=== PATIENT | male | born 1955 | race Caucasian/White ===

== ENCOUNTER 2023-11-04 10:36 | Emergency (ER) | payer MEDICARE, SELFPAY ==
[2023-11-04 10:38] VITALS: BP 155/103; PULSE 80; RESP 18; TEMP 36.4; O2SAT 93; BMI 28.8
--- NOTE | 2023-11-04 10:39 | CT_ITS ---
STUDY: CT CERVICAL SPINE WITHOUT CONTRAST REASON FOR EXAM: Male, 67 years old. Fall, neck RADIATION DOSAGE (If Supplied By Facility): CTDIvol = ( 27.28 ) mGy, DLP = ( 498.97 ) mGycm TECHNIQUE: High resolution transaxial imaging was performed without contrast material. Sagittal and coronal images were reconstructed. Individualized dose optimization techniques were used for this CT. COMPARISON: None FINDINGS: Normal craniovertebral junction. Normal anterior atlantoaxial articulation. Normal odontoid process. There is a fracture involving the occipital bone extending to the foramen magnum. A small amount of air is seen along the inferior aspect of the right foramen magnum. There is straightening of the normal cervical lordosis. Normal vertebral bodies and posterior osseous elements. C2-3: Facet joint osteoarthritis and hypertrophy more prominent on the right side. C3-4: Mild degree of disc space narrowing. Facet joint osteoarthritis and hypertrophy. No significant stenosis seen. C4-5: Moderate degree of disc space narrowing. Spondylosis. Uncovertebral arthrosis. No significant stenosis is seen. C5-6: Marked degree of disc space narrowing with spondylosis and uncovertebral arthrosis. Bilateral neural foraminal stenosis. C6-7: Marked degree of disc space narrowing with uncovertebral arthrosis. Bilateral neural foraminal stenosis. C7-T1: Normal endplates. Normal disc height and morphology. Normal central canal and intervertebral neuroforamina. Atherosclerotic plaque formation of the carotid bifurcation. CT/Spine Cervical without Contras IMPRESSION: Multilevel degenerative changes, as described above. Fracture through the base of the occipital bone as described in the seen on the CT scan of the head. Electronically Signed: Jonathan Beverly MD at 11:27 EDT ,
--- NOTE | 2023-11-04 10:39 | CT_ITS ---
STUDY: CT BRAIN WITHOUT CONTRAST REASON FOR EXAM: Male, 67 years old. Head trauma RADIATION DOSAGE (If Supplied By Facility): CTDIvol = ( 44.99 ) mGy, DLP = ( 863.60 ) mGycm TECHNIQUE: Transaxial CT imaging of the brain was performed without administration of intravenous contrast material. Individualized dose optimization techniques were used for this CT. COMPARISON: No relevant priors. FINDINGS: Normal soft tissue structures. Nondisplaced fracture involving the medial aspect of the right occipital bone extending to the midline along the inferior aspect and into the foramen magnum. There is mild cerebral atrophy with widening of the extra-axial spaces and ventricular dilatation. There is evidence of subarachnoid hemorrhage. There is evidence of bone contusions involving the anterior aspects of the frontal lobes. There is evidence of small bilateral frontal acute subdural hematomas. Normal basal ganglia and thalami. Normal brainstem. Normal cerebellum. There is evidence of air within the base of the skull. Findings suggestive of possible basilar skull fracture. Air-fluid levels are seen in the maxillary sinuses as well as in the sphenoid sinuses more prominent in the right sphenoid sinus. CT/Brain/Head without Contrast IMPRESSION: I suspect a basilar skull fracture as well as a fracture through the right occipital bone extending medially into the foramen magnum. Subarachnoid hemorrhage in the bifrontal contusions of the frontal lobes. Acute small bilateral subdural hematomas overlying the frontal lobes. Air is seen within the base of the skull and overlying the right temporal bone. N.B. : The above Results were Read Back by Jonathan Beverly MD to Donald Delatorre DO, and understanding confirmed on 11/04/2023 11:20:47 (ET). Electronically Signed: Jonathan Beverly MD at 11:22 EDT ,
--- NOTE | 2023-11-04 10:40 | CT_ITS ---
STUDY: CTA CHEST REASON FOR EXAM: Male, 67 years old. Syncope, hypotension RADIATION DOSAGE (If Supplied By Facility): CTDIvol = ( 19.63 ) mGy, DLP = ( 562.81 ) mGycm TECHNIQUE: The examination was performed with the intravenous administration of ISOVUE 370-100ml. Post-processing of the angiographic images was performed, with multiplanar reformation and 3D reconstruction. Individualized dose optimization techniques were used for this CT. COMPARISON: None. FINDINGS: Normal enhancement of the main pulmonary artery and right and left pulmonary arteries. Normal enhancement of the bilateral peripheral pulmonary arteries. There is no demonstrated pulmonary embolism. Normal thoracic aorta and visualized great vessels. There is no demonstrated aortic dissection. There are calcifications of the coronary arteries. Normal mediastinum. Normal hilar regions. Normal visualized trachea and bronchi. The lungs are well expanded. Patchy airspace disease seen along the posterior aspect of the right upper lobe abutting the right major fissure as well as at the lung bases suggestive of atelectasis and/or contusions with the patient''s history of injury. Normal pleura. Normal chest wall structures. There are degenerative changes of thoracic spine. Increased kyphosis. Multiple gallstones are seen within the gallbladder lumen. CT/CTA Chest W/WO Contrast IMPRESSION: Findings suggestive of a high-grade atelectasis and/or contusions in both lungs as described with the patient''s history of injury. Gallstones. Electronically Signed: Jonathan Beverly MD at 11:29 EDT ,
--- NOTE | 2023-11-04 10:42 | NURSING ---
NO OLD EKGS
--- NOTE | 2023-11-04 10:58 | EX.ED.GENINJ ---
HPI History of Present Illness Chief Complaint: Trauma PFSH PFSH Allergy/AdvReac Type Severity Reaction Status Date / Time No Known Allergies Allergy Verified 11/04/23 10:56 EXAM Physical Exam Const Vital Signs: 11/04/23 10:38 Temperature 97.6 F L Temperature Source Temporal Pulse Rate 80 Respiratory Rate 18 Blood Pressure 155/103 H Blood Pressure Mean 120 Pulse Ox 93 Oxygen Delivery Method [place] [facility] [place] Medical decision making narrative: HISTORY OF PRESENT ILLNESS: 67-year-old male presents with altered mental status, syncope. Per EMS patient was at work he passed out striking the back of his head. They note they arrived he was sitting. They note they loaded him on their cot then he passed out. Patient does not provide reliable history but has no specific complaints at this time REVIEW OF SYSTEMS: Pertinent positives: Fall, head trauma, syncope Pertinent negatives: Headache, nausea, vomiting PHYSICAL EXAM: Nursing triage notes reviewed, Vital signs reviewed Constitutional: please see mdm HENT: MMM Eyes: Pupils equal round and reactive to light, Extraocular muscles intact Neck: No stridor, no JVD, full neck ROM Lungs: Clear to auscultation, No wheezing or rales. No increased work of breathing, no conversational dyspnea, no accessory muscle use, no nasal flaring. No respiratory distress noted Heart: Regular rate and rhythm, No murmurs, No rubs and No gallops, 2+ distal pulses (radial, femoral, posterior tibial) in all extremities Abdomen: Soft, there is no tenderness, rigidity, rebound or guarding, no obvious peritoneal signs, no palpable pulsatile abdominal masses, no auscultated abdominal bruit : No CVAT Extremities: No edema Neuro: alert to person, not place or time. GCS 14. No obvious CN deficits, no focal extremity changes. Skin: No rash or lesions noted MEDICAL DECISION MAKING: Chief Complaint: Fall, head trauma, syncope External records reviewed: [] Factors affecting care: none [] Social determinants of health: none [] History obtained from others: none [] Consults: none [] [facility] Narrative: [] I considered the following differential diagnosis: [] ALL IMAGES (IF OBTAINED) HAVE BEEN PERSONALLY REVIEWED AND INTERPRETED BY MYSELF. [] The patient and/or family, caregivers express understanding. The patient and/or family, caregivers agrees with the plan. Shared decision making: I will have a discussion with the patient and or visitors regarding risk/benefits of further testing or admission. They will be made aware of of the risk/benefits inherent in this decision they will be given the opportunity to voice understanding. Total critical care time today provided was at least 0 [] minutes. This excludes separately billable procedures. Critical care time (if documented) is secondary to the patient having high probability of clinically significant/life threatening deterioration in the patient's condition which required my urgent intervention. Impression: [] Dispo: [] This note was generated with [employer] dictation software. It may contain incorrect words, spelling, and punctuation that were not noted in review of the chart prior to signing. Discharge Plan Triage Chief Complaint: Trauma ED Provider: Donald Delatorre Dx/Rx/DC Orders Primary Care Provider: Care Physician,No Primary Referrals: Care Physician,No Primary [Primary Care Provider] - Print Language: Italian
[2023-11-04 11:10] LABS: Absolute Lymphocyte Count 1.76 X10^3/uL (0.83-4.51); Basophil# 0.07 X10^3/uL; Basophil% 0.6 % (0-1); Eosinophils% 2.6 % (0-5); Hemoglobin 17.6 g/dL (13.0-16.5); Lymphocyte # 1.76 X10^3/ul (0.83-4.51); Lymphocyte % 15.3 % (19-41); Mean Corp Hgb Conc 32.6 g/dL (32-36); Mean Corpuscular Hgb 31.7 pg (27.0-32.0); Mean Corpuscular Volume 97.3 fL (80-94); Mean Platelet Vol. 11.2 fl (6.2-12.0); Monocyte# 1.32 X10^3/uL; Monocyte% 11.5 % (0-10); NRBC Flagged by Analyzer 0 % (0-5); Neutrophil # 7.96 X10^3/uL (2.7-7.7); Neutrophil % 69.3 % (47-70); Platelet Count 183 K/mm3 (150-450); RBC Distribution Width CV 14.1 % (11.6-14.6); RBC Distribution Width SD 51.1 fl (35.1-43.9); Red Blood Count 5.55 M/mm3 (4.6-6.2); White Blood Count 11.5 K/mm3 (4.4-11.0)
[2023-11-04] MEDS: Labetalol (Compound) 20 MG/4 ML SYRINGE IV ×2 (11:25→11:47)
[2023-11-04 11:34] LABS: BNP,B-Type NATRIURETIC PEPTIDE 10.5 pg/mL (0-100)
[2023-11-04] MEDS: Ondansetron 4 MG/2 ML Vial IV (11:44)
[2023-11-04] MEDS: levETIRAcetam IV 1,000 MG/100 ML BAG 400 MG IV (11:45)
[2023-11-04 11:48] VITALS: BP 166/97; PULSE 87; RESP 18; O2SAT 94
[2023-11-04 11:50] LABS: Amphetamine Urine NEGATIVE (<1000 ng/mL); Barbiturate Urine VISTA NEGATIVE (< 200 ng/mL); Benzodiazepine Urine VISTA NEGATIVE (< 200 ng/mL); Cocaine Urine VISTA NEGATIVE (< 300 ng/mL); Ecstacy Urine VISTA NEGATIVE (< 500 ng/mL); Methadone Urine VISTA NEGATIVE (< 300 ng/mL); PCP Urine VISTA NEGATIVE (< 25 ng/mL); THC Urine VISTA NEGATIVE (< 50 ng/mL); Vista UDS pH Range 4
[2023-11-04 11:58] VITALS: BP 166/97; PULSE 87; RESP 18; TEMP 36.4; O2SAT 94
--- NOTE | 2023-11-04 12:08 | ED.RN ---
PATIENTS DAUGHTER RACHELLE CALLING FOR UPDATE. SHE HAS BEEN INFORMED OF PATIENTS INJURY TO HEAD- BLEEDING AND FRACTURE AT THE BASE OF HIS SKULL. HE WILL BE TRANSFERRED TO [facility]. SHE HAS NO FURTHER QUESTIONS AT THIS TIME. KEITH CALLED BACK WITH INFORMATION FOR HER BROTHER REGARDING PATIENTS MEDICAL HX AND MEDICATION HX. 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 ROSENDA MCMAHON [phone]. COMPANY CALLED [facility] ROD IV IN RIGHT UPPER ARM INFILTRATED. NEW IV ACCESS 20g RIGHT FORARM POSTERIOR BY LUIS ROMEO. NEW IV ACCESS LEFT ARM 20G BY [employer]. 2 LABETOLOL 20 MG GIVEN TO [employer]. JORDIRA CONTINUED DURING TRANSPORT. 2 BELONGING BAGS GIVEN TO SECURITY ANGELA TO CARRY TO HELICOPTER.
[2023-11-04 12:23] LABS: Alcohol, Blood (Medical)-Serum < 3.0 mg/dL
== END 2023-11-04 12:10 | disposition short-term general hospital (02) ==
PROVIDERS: Emergency Provider Emergency Medicine; Visit Provider Emergency Medicine
DX: S06.5X9A Traumatic subdural hemorrhage with loss of consciousness of unspecified duration, initial encounter (principal); F19.99 Other psychoactive substance use, unspecified with unspecified psychoactive substance-induced disorder; S02.119A Unspecified fracture of occiput, initial encounter for closed fracture; S06.6X9A Traumatic subarachnoid hemorrhage with loss of consciousness of unspecified duration, initial encounter; Y99.0 Civilian activity done for income or pay; W19.XXXA Unspecified fall, initial encounter; Y93.89 Activity, other specified; Y92.89 Other specified places as the place of occurrence of the external cause; R41.82 Altered mental status, unspecified
CPT/HCPCS: 51702; 70450; 71275; 72125; 80307; 82077; 83880; 85025; 93005; 96365; 96375; 99285; A4216; J2405